=== PATIENT | female | born 1985 | race Caucasian/White ===

== ENCOUNTER 2017-08-17 12:29 | Outpatient (CLI) | payer OTHER | END 2017-08-17 12:46 | disposition home or self-care (01) | LOC: LAB 12:29 | DX: J10.1 Influenza due to other identified influenza virus with other respiratory manifestations (principal); R50.9 Fever, unspecified ==

== ENCOUNTER 2018-02-26 13:53 | Inpatient (IN) | payer OTHER ==
[~2018-02-26] VITALS: Ht 165.1 cm; Wt 88.9 kg
[2018-03-22] MEDS ORDERED: NABUMETONE750 MG PO (13:11)
[2018-03-22] MEDS ORDERED: DOCUSATE SODIU100 MG PO (13:12)
== END 2018-03-22 13:27 | DRG 775 ==
LOC: OB/GYN 03-16 14:00 → LDR 03-19 12:11 → OB/GYN 03-19 12:11 → LDR 03-19 16:22 → OB/GYN 03-20 02:59
PROC: 4A1HXCZ Monitoring of Products of Conception, Cardiac Rate, External Approach (ICD-10-PCS; 2018-03-19)
PROC: 0DQP0ZZ Repair Rectum, Open Approach (ICD-10-PCS; principal; 2018-03-20)
PROC: 10E0XZZ Delivery of Products of Conception, External Approach (ICD-10-PCS; 2018-03-20)
PROC: 0W8NXZZ Division of Female Perineum, External Approach (ICD-10-PCS; 2018-03-20)
DX: O70.3 Fourth degree perineal laceration during delivery (principal); Z37.0 Single live birth; Z3A.39 39 weeks gestation of pregnancy; Z22.330 Carrier of Group B streptococcus

== ENCOUNTER → 2019-08-09 | Outpatient (CLI) | payer OTHER ==
[~2019-08-09] MED LIST: DOCUSATE SODIU100 MG PO; NABUMETONE750 MG PO
== END | disposition home or self-care (01) ==
LOC: PRENATAL 08:00
DX: O36.5910 Maternal care for other known or suspected poor fetal growth, first trimester, not applicable or unspecified (principal); O09.521 Supervision of elderly multigravida, first trimester; O36.80X1 Pregnancy with inconclusive fetal viability, fetus 1

== ENCOUNTER → 2019-10-17 | Outpatient (CLI) | payer OTHER | END | disposition home or self-care (01) | LOC: PRENATAL 13:00 | DX: O35.3XX1 Maternal care for (suspected) damage to fetus from viral disease in mother, fetus 1 (principal); O09.522 Supervision of elderly multigravida, second trimester; Z36.89 Encounter for other specified antenatal screening ==

== ENCOUNTER 2020-01-31 14:15 | Inpatient (IN) | payer OTHER ==
[~2020-01-31] VITALS: Ht 165.1 cm; Wt 85.3 kg
[2020-02-03] MEDS ORDERED: PRENATAL CAPLE1 EAC1 (14:44)
[2020-02-03] MEDS ORDERED: DIALYVITE 800-1 EACH PO (14:46)
== END 2020-02-05 15:11 | disposition home or self-care (01) | DRG 807 ==
LOC: LDR 02-03 13:15 → OB/GYN 02-03 13:15
PROVIDERS: ADMIT Obstetrics & Gynecology; ATTEND Obstetrics & Gynecology
PROC: 10E0XZZ Delivery of Products of Conception, External Approach (ICD-10-PCS; principal; 2020-02-03)
PROC: 10907ZC Drainage of Amniotic Fluid, Therapeutic from Products of Conception, Via Natural or Artificial Opening (ICD-10-PCS; 2020-02-03)
PROC: 0W8NXZZ Division of Female Perineum, External Approach (ICD-10-PCS; 2020-02-03)
PROC: 4A1HXCZ Monitoring of Products of Conception, Cardiac Rate, External Approach (ICD-10-PCS; 2020-02-03)
DX: O80 Encounter for full-term uncomplicated delivery (principal); Z37.0 Single live birth; Z3A.39 39 weeks gestation of pregnancy; Z20.828 Contact with and (suspected) exposure to other viral communicable diseases

== ENCOUNTER 2023-01-12 14:31 | Emergency (ER) | payer OTHER ==
[~2023-01-12] VITALS: Ht 165.1 cm; Wt 75.3 kg
[~2023-01-12 14:31] MED LIST changes: +DIALYVITE 800-1 EACH PO; +PRENATAL CAPLE1 EAC1
[2023-01-12] MEDS ORDERED: COZAAR50 MG PO (17:30)
== END 2023-01-12 18:21 | disposition home or self-care (01) ==
LOC: ER 14:31
DX: I10 Essential (primary) hypertension (principal); Z88.2 Allergy status to sulfonamides